=== PATIENT | female | born 1935 ===

== ENCOUNTER 2019-02-28 12:21 | Outpatient (CLI) | payer MEDICARE ==
--- NOTE | 2019-02-28 13:32 | BD ---
DEXA BONE MINERAL DENSITOMETRY EXAM, DENSITY EXAM: HISTORY: An 83-year-old postmenopausal female for screening. FINDINGS: Lumbar Spine: BMD (g/cm2) L1 0.676 T-Score: -2.9 L2 0.623 T-Score: -3.7 L3 0.648 T-Score: -4.0 L4 0.632 T-Score: -3.9 L1-L4 0.644 T-Score: -3.7 Femoral Neck: 0.465 T-Score: -3.5 Total Femur: 0.551 T-Score: -3.2 Impression: Osteoporosis. POS: [id number]
== END 2019-02-28 12:22 | disposition home or self-care (01) ==
LOC: BICMAMMO 12:21
PROVIDERS: ATTEND Student in an Organized Health Care Education/Training Program
DX: M81.0 Age-related osteoporosis without current pathological fracture (principal)
CPT/HCPCS: 77080